=== PATIENT | female | born 1990 | race Caucasian/White ===

== ENCOUNTER 2019-07-01 15:00 | Emergency (ER) | payer OTHER ==
[2019-07-01 15:11] VITALS: BP 117/79
--- NOTE | 2019-07-01 15:22 | ED Physician Documentation ---
History of Present Illness - Stated complaint Stated Complaint: FIT FOR LONG-TERM - Chief complaint Chief Complaint: General - History obtained from History obtained from: Patient - Additonal information Additional information: Patient is a 29-year-old female who presents with complaints for medical clearance. Patient admits to smoking methamphetamine and denies injection, use of alcohol, use of other illicit substances, but admits to tobacco usage. Patient's only complaint is skin changes from skin picking. Patient does report pain and purulent drainage from the right ear area. No fever or other complaints. No other improving or worsening factors noted. Review of Systems Constitutional: denies: Fever Ears: reports: Ear pain, Drainage/discharge. denies: Loss of hearing Throat: denies: Oral lesions / sores Skin: reports: Lesions PD PAST MEDICAL HISTORY - Past Medical History Past Medical History: No - Past Surgical History Past Surgical History: No - Present Medications Home Medications: Ambulatory Orders Medication Instructions Recorded Confirmed Cephalexin [Keflex] 500 mg PO Q6H #28 capsule 07/01/19 Sulfamethox/Trimeth 800/160 1 each PO BID #14 tablet 07/01/19 [Bactrim Ds 800/160] - Allergies Allergies/Adverse Reactions: Allergies Allergy/AdvReac Type Severity Reaction Status Date / Time No Known Drug Allergies Allergy Verified 07/01/19 15:11 - Social History Does the pt smoke?: Yes Smoking Status: Current every day smoker Does the pt drink ETOH?: Yes Does the pt have substance abuse?: Yes Substance Use and Type: Heroin - Immunizations Immunizations are current?: Yes - POLST Patient has POLST: No PD ED PE NORMAL - Vitals Vital signs reviewed: Yes - General General: Alert and oriented X 3, No acute distress, Well developed/nourished - HEENT HEENT: Atraumatic, Moist mucous membranes - Neck Neck: Supple, no meningeal sign - Cardiac Cardiac: RRR, No murmur - Respiratory Respiratory: No respiratory distress, Clear bilaterally - Derm Derm: Other (Multiple areas of skin picking and scabbing scattered over face and upper extremities with small area of purulence to right tragus only.) - Extremities Extremities: No deformity, No tenderness to palpate - Neuro Neuro: Alert and oriented X 3, No motor deficit, No sensory deficit - Psych Psych: Normal mood, Normal affect Results - Vitals Vitals: Vital Signs - 24 hr 07/01/19 15:06 Temperature 36.9 C Heart Rate 99 Respiratory 16 Rate Blood Pressure 117/79 O2 Saturation 99 Oxygen O2 Source Room air PD MEDICAL DECISION MAKING - ED course Complexity details: considered differential, d/w patient ED course: Patient presenting with changes from methamphetamine use and skin picking. Patient does have area of purulence to the right tragus of the ear but is otherwise uncomplicated and not amenable to drainage. Feel appropriate to treat with antibiotics and also advised other wound care. Remainder physical exam is relatively unremarkable. Feel that patient is medically clear for discharge to snf. Advised on use of medications, supportive cares, cessation of substances, return precautions and follow-up. Departure - Departure Disposition: 01 Home, Self Care Clinical Impression: Abscess Condition: Good Instructions: ED Staph Infec Abx Tx Only Follow-Up: your,doctor [Other] - Within 3 Days Prescriptions: Cephalexin [Keflex] 500 mg PO Q6H #28 capsule Sulfamethox/Trimeth 800/160 [Bactrim Ds 800/160] 1 each PO BID #14 tablet Comments: Please keep all wounds clean and dry using running water and soap only.Please use antibiotics as instructed. Avoid alcohol, tobacco, and other recreational drugs. Follow-up with primary care physician in next 2 to 3 days and return to ED sooner if experience worsening symptoms or have other concerns.
== END 2019-07-01 15:45 | disposition home or self-care (01) ==
LOC: ED 15:00
DX: H60.01 Abscess of right external ear (principal); R23.9 Unspecified skin changes; F15.90 Other stimulant use, unspecified, uncomplicated; F17.200 Nicotine dependence, unspecified, uncomplicated
CPT/HCPCS: 99282; 99283